=== PATIENT | male | born 1965 | race Caucasian/White ===

== ENCOUNTER 2016-07-22 14:28 | Emergency (ER) | payer OTHER ==
[~2016-07-22] VITALS: Ht 180.3 cm; Wt 128.4 kg
--- NOTE | 2016-07-22 14:44 | ED CARDIAC/CP/PALPITATIONS ---
History of Present Illness General Chief Complaint: Chest Pain Stated Complaint: CHEST TIGHTNESS Source: patient Exam Limitations: no limitations Vital Signs & Intake/Output Vital Signs & Intake/Output Vital Signs Date Time Temp Pulse Resp B/P Pulse O2 O2 Flow FiO2 Ox Delivery Rate 07/22 1553 97.8 82 18 141/78 97 Room Air 07/22 1524 98 Room Air Room Air 07/22 1434 98.3 88 18 155/100 99 Room Air Allergies Coded Allergies: No Known Allergies (07/22/16) Reconcile Medications Amlodipine Besylate (Norvasc) 5 MG TABLET 1 TAB PO QPM HEART (Reported) Losartan Potassium (Cozaar) 25 MG TABLET 1 TAB PO QPM HEART (Reported) Triage Note: 51 YEAR OLD MALE STATES THAT WHILE AT WORK SITTING AT DESK HE HAD A SUDDEN ONSET OF INTERMITTANT L SIDE CP, NON RADIATING AND HAPPENS WHEN HE TAKES A DEEP BREATH Triage Nurses Notes Reviewed? yes Onset: Abrupt Duration: day(s): (1) Timing: single episode today Quality/Severity: mild, moderate, sharp Location: central Radiation: UNDER RIGHT BREAST HPI: 51 y/o male h/o HTN presents with epigastric pain radiating to under right breast starting today. Chest pain was at rest. Denies n/v/sob/diaphoreisis/ palpitations. H/o similar symptoms 1 year ago that resolved on its own. Pain resolved. Was worse with deep breathing. Past History Travel History Traveled to [place] past 21 day No Medical History Any Pertinent Medical History? see below for history Neurological: NONE EENT: NONE Cardiovascular: hypertension Respiratory: NONE Gastrointestinal: NONE Hepatic: NONE Renal: NONE Musculoskeletal: NONE Psychiatric: NONE Endocrine: NONE Blood Disorders: NONE Cancer(s): NONE TOY STUFFER/Reproductive: NONE Surgical History Surgical History: right leg varicose vein Psychosocial History What is your primary language Venezuelan Tobacco Use: Never used ETOH Use: denies use Illicit Drug Use: denies illicit drug use Family History Comment: father [place] in 80's Hx Contributory? Yes Review of Systems Review of Systems Constitutional: Reports: no symptoms. EENTM: Reports: no symptoms. Respiratory: Denies: cough, short of breath. Cardiovascular: Reports: chest pain. GI: Denies: bloating. Genitourinary: Denies: discharge, dysuria. Musculoskeletal: Reports: no symptoms. Skin: Reports: no symptoms. Neurological/Psychological: Reports: no symptoms. Hematologic/Endocrine: Denies: bruising, bleeding, polyuria, other. Immunologic/Allergic: Denies: splenectomy. All Other Systems: Reviewed and Negative Physical Exam Physical Exam General Appearance: well developed/nourished, alert, awake Head: atraumatic, normal appearance Eyes: Bilateral: normal appearance, PERRL, EOMI. Ears, Nose, Throat: normal pharynx, hearing grossly normal Neck: normal inspection, supple, JVD Respiratory: normal breath sounds, chest non-tender, no respiratory distress Cardiovascular: regular rate/rhythm Peripheral Pulses: 2+ radial (R), 2+ radial (L) Gastrointestinal: soft, non-tender Extremities: normal inspection, normal capillary refill, normal range of motion, no edema Neurologic/Psych: no motor/sensory deficits, awake, alert, oriented x 3 Skin: intact, normal color, warm/dry Core Measures ACS in differential dx? Yes ASA ordered for poss ACS? Yes-ordered Severe Sepsis Present: No Septic Shock Present: No Progress Differential Diagnosis: AMI, aortic dissection, costochondritis, musculoskeletal pain, myocarditis, pericarditis, pneumonia, pneumothorax, pulmonary embolism, unstable angina Plan of Care: Orders Procedure Date/time Status TROPONIN LEVEL 07/22 1505 Complete LIPASE 07/22 1505 Complete COMPREHENSIVE METABOLIC PANEL 07/22 1505 Complete CBC WITHOUT DIFFERENTIAL 07/22 1505 Complete EKG 07/22 1429 Active Laboratory Tests 07/22/16 1511: Anion Gap 9, Estimated GFR > 60, BUN/Creatinine Ratio 22.9, Glucose 161 H, Calcium 9.6, Total Bilirubin 0.7, AST 85 H, ALT 143 H, Alkaline Phosphatase 106, Troponin I < 0.01, Total Protein 8.0, Albumin 4.4, Globulin 3.6, Albumin/ Globulin Ratio 1.2, Lipase 68, CBC w Diff NO MAN DIFF REQ, RBC 5.39, MCV 87.3, MCH 30.5, RDW 13.2, MPV 7.9, Gran % 63.5, Lymphocytes % 28.9, Monocytes % 6.6, Eosinophils % 0.8, Basophils % 0.2, Absolute Granulocytes 4.6, Absolute Lymphocytes 2.1, Absolute Monocytes 0.5, Absolute Eosinophils 0.1, Absolute Basophils 0, PUBS MCHC 35.0 CHEST PAIN FREE. EKG WNL. WILL FOLLOW UP WITH OUTPATIENT CARDIOLOGY. (JERICHO MD,RAUL) Initial ED EKG: NSR Departure Departure Time of Disposition: 1704 Disposition: HOME OR SELF CARE Condition: Stable Clinical Impression Primary Impression: Chest pain Secondary Impressions: Hepatic steatosis Referrals: CHRISTOPHER BYRNES,BECCA JEFFERY MD,SEAN Bullard (PCP/Family) Additional Instructions: Follow-up with a business operations coordinator listed or one through your primary care doctor. Please continue your blood pressure medications. Please follow-up her liver function tests with her primary care doctor. Departure Forms: Customer Survey General Discharge Information Critical Care Note Critical Care Note Critical Care Time: non-applicable
[2016-07-22] MEDS ORDERED: NORVASC5 M1 PO (15:15)
[2016-07-22] MEDS ORDERED: COZAAR25 M1 PO (15:15)
[2016-07-22 15:27] LABS: ABSOLUTE BASOPHIL COUNT 0 /CUMM (0.0-0.2); ABSOLUTE EOSINOPHIL COUNT 0.1 /CUMM (0.0-0.7); ABSOLUTE GRANULOCYTE CT 4.6 /CUMM (1.4-6.5); ABSOLUTE LYMPH COUNT 2.1 /CUMM (1.2-3.4); ABSOLUTE MONOCYTE COUNT 0.5 /CUMM (0.10-0.60); BASOPHIL % 0.2 % (0.0-2.0); EOSINOPHIL % 0.8 % (0-5); GRANULOCYTE % 63.5 % (42.2-75.2); HEMATOCRIT 47.1 % (42-52); MEAN CORPUSCULAR HGB 30.5 PG (27.0-31.0); MEAN CORPUSCULAR VOLUME 87.3 FL (80.0-94.0); MEAN PLATELET VOLUME 7.9 FL (7.4-10.4); PLATELET COUNT 239 /CUMM (130-400); RBC DISTRIBUTION WIDTH 13.2 % (11.5-14.5); RED BLOOD CELL CT 5.39 /CUMM (4.70-6.10); WHITE BLOOD CELL COUNT 7.2 /CUMM (4.8-10.8)
[2016-07-22 15:53] VITALS: BP 141/78
== END 2016-07-22 17:12 ==
LOC: ERH 14:28
PROVIDERS: Emergency Medicine
DX: R07.9 Chest pain, unspecified (principal); K76.0 Fatty (change of) liver, not elsewhere classified
CPT/HCPCS: 93005; 93010